=== PATIENT | male | born 1980 | race Caucasian/White ===

== ENCOUNTER 2024-02-12 12:39 | Emergency (ER) | payer OTHER, SELFPAY ==
[2024-02-12] VITALS (9 sets, daily range): BP systolic 134–163; BP diastolic 78–111; BMI 28.5
[2024-02-12 13:11] LABS: % Basophils 1.3 % (0-2); % Eosinophils 3.4 % (0-6); % Immature Granulocytes 0.1 % (0-0.5); % Lymphocytes 26.4 % (20.5-51.1); % Monocytes 9.3 % (1.7-9.3); % Neutrophils 59.5 % (42.2-75.2); Absolute Basophils 0.1 10^3/uL (0-0.2); Absolute Eosinophils 0.2 10^3/uL (0-0.7); Absolute Lymphocytes 1.9 10^3/uL (1.2-3.4); Absolute Monocytes 0.7 10^3/uL (0.1-0.6); Absolute Neutrophils 4.2 10^3/uL (1.4-6.5); Hematocrit 48.7 % (39.0-52.0); Hemoglobin 17.7 g/dL (13.0-18.0); Mean Corp Hgb Conc. 36.3 g/dL (33.0-37.0); Mean Corpuscular Hgb 31.1 pg (27.0-31.0); Mean Corpuscular Volume 85.6 fL (80.0-94.0); Mean Platelet Volume 9.7 fL (7.4-10.4); Nucleated Red Blood Cells % 0 % (-); Platelet Count 197 10^3/uL (130-400); Red Blood Cell Count 5.69 10^6/uL (4.70-6.10); Red Cell Dist. Width 12.8 % (11.5-14.5)
[2024-02-12 13:20] LABS: INR 0.93; PT 12.5 Sec (11.4-14.6)
[2024-02-12 13:29] LABS: ALT (SGPT) 42 U/L (0-50); AST (SGOT) 36 U/L (17-59); Albumin 4.9 g/dl (3.5-5.0); Alkaline Phosphatase 72 U/L (38-126); Blood Urea Nitrogen 19 mg/dl (9-20); Calcium 9.9 mg/dl (8.4-10.2); Carbon Dioxide 27 mmol/L (22-30); Chloride 102 mmol/L (98-107); Glucose 180 mg/dl (70-99); Potassium 4.7 mmol/L (3.5-5.1); Sodium 142 mmol/L (135-145); Total Bilirubin 0.8 mg/dl (0.2-1.3); Total Protein 7.5 g/dl (6.3-8.2); eGFR > 60.00
--- NOTE | 2024-02-12 13:29 | ED.GENMED ---
History of Present Illness
<Palak Whitten PA-C - Last Filed: 02/12/24 18:13>
General
Chief Complaint: Chest Pain
Source: patient
Exam Limitations: none
Time Seen by Provider: 02/12/24 13:19
Nursing documentation reviewed up to this point in time: agreed with
History of Present Illness
History of Present Illness:
Patient is a 43-year-old male presenting to the emergency department for evaluation of chest discomfort. Patient states he initially noticed pain Yash afternoon and describes it as a sharp, stabbing pain in his left chest with no radiation to back
or jaw. Patient states pain is somewhat constant and dull although with very severe intermittent episodes worse with both movement and breathing. Patient denies any known inciting event or trauma. Patient states pain does seem worse when lying
flat. He does endorse feeling short of breath, as well. No associated fever, chills, recent virus, cough.
Patient denies any personal history of blood clots or clotting disorders. He does however state that his grandfather of a blood clot. No recent travel or recent surgeries.
Patient does take testosterone injections twice weekly.
Patient denies any known history of coronary artery disease. He did have a stress test with a cloth laminating supervisor few years ago for general evaluation which was normal.
Review of Systems
<Palak Whitten PA-C - Last Filed: 02/12/24 18:13>
Review of Systems
Allergies reviewed?: Yes
All Other Systems: ROS reviewed and negative except as documented in HPI and ROS
Phy Exam
<Palak Whitten PA-C - Last Filed: 02/12/24 18:13>
Physical Exam
Physical Exam:
Vitals: Hypertensive, otherwise vital signs stable. Afebrile
General: Patient is well appearing, no acute distress. Nontoxic appearing
Skin: Warm and dry, no rashes or lesions
Head: Normocephalic, atraumatic
Eyes: Sclera nonicteric. EOMs intact. No nystagmus.
Throat: Protecting airway
Neck: Normal ROM, no cervical spine tenderness, no meningismus. No JVD. Trachea midline
Cardiac: Regular rate and rhythm, no murmurs.
Pulm: In no apparent respiratory distress. Oxygenating well at 98% on room air. Normal respiratory effort, no wheezes, rales, rhonchi heard on exam.
Abdomen: Nondistended.
Extremities: No evidence of cyanosis or edema. Great distal pulses. Negative Homans' sign bilaterally
Neuro: Grossly intact.
Psychiatric: Normal affect.
Scores
<Palak Whitten PA-C - Last Filed: 02/12/24 18:13>
Heart Score for Chest Pain Patients
STEMI patient?: No
History: Slightly or Non-Suspicious
ECG: Normal
Age: </= 45 years
Risk Factors: 1 or 2 Risk Factors
Troponin: </= Normal Limit
Heart Score for Chest Pain Patients: 1
Heart Score Risk: 2.5% MACE over next 6 weeks
Course
<Palak Whitten PA-C - Last Filed: 02/12/24 18:13>
Orders/Labs/Results
Orders:
Orders
02/12/24 12:40
Electrocardiogram (*1) Urgent
Reason for Study: Chest Pain
EKG- Treatment ONCE
02/12/24 12:54
Complete Blood Count/With Diff Urgent
Comprehensive Metabolic Panel Urgent
Prothrombin Time Urgent
Troponin I Urgent
02/12/24 13:54
0.9% Sodium Chloride 1000 ml [Nss] 1,000 ml IV BOLUS
Ketorolac [Toradol] 15 mg IV NOW STA
02/12/24 13:55
CT Chest Pe Study Urgent
Comment:
Reason For Exam: left sided chest pain, shortness of breath
Abnormal Lab Results
02/12/24
12:54
MCH 31.1 H pg
(27.0-31.0)
Absolute Monos (auto) 0.7 H 10^3/uL
(0.1-0.6)
Glucose 180 H mg/dl
(70-99)
02/12/24 12:54
02/12/24 12:54
Vital Signs
Blood pressure: 134/82
Initial and Last Documented VS:
Initial Vital Signs
Temp Pulse Resp BP Pulse Ox
98.1 F 101 19 145/111 98
02/12/24 12:44 02/12/24 12:44 02/12/24 12:44 02/12/24 12:44 02/12/24 12:44
Last Documented Vital Signs
Temp Pulse Resp BP Pulse Ox
98.5 F 87 20 152/78 98
02/12/24 14:07 02/12/24 16:30 02/12/24 15:17 02/12/24 16:00 02/12/24 16:30
<Alyssa Zazueta MD - Last Filed: 02/12/24 14:27>
Orders/Labs/Results
Orders:
Orders
02/12/24 12:40
Electrocardiogram (*1) Urgent
Reason for Study: Chest Pain
EKG- Treatment ONCE
02/12/24 12:54
Complete Blood Count/With Diff Urgent
Comprehensive Metabolic Panel Urgent
Prothrombin Time Urgent
Troponin I Urgent
02/12/24 13:54
0.9% Sodium Chloride 1000 ml [Nss] 1,000 ml IV BOLUS
Ketorolac [Toradol] 15 mg IV NOW STA
02/12/24 13:55
CT Chest Pe Study Urgent
Comment:
Reason For Exam: left sided chest pain, shortness of breath
Abnormal Lab Results
02/12/24
12:54
MCH 31.1 H pg
(27.0-31.0)
Absolute Monos (auto) 0.7 H 10^3/uL
(0.1-0.6)
Glucose 180 H mg/dl
(70-99)
02/12/24 12:54
02/12/24 12:54
Vital Signs
Initial and Last Documented VS:
Initial Vital Signs
Temp Pulse Resp BP Pulse Ox
98.1 F 101 19 145/111 98
02/12/24 12:44 02/12/24 12:44 02/12/24 12:44 02/12/24 12:44 02/12/24 12:44
Last Documented Vital Signs
Temp Pulse Resp BP Pulse Ox
98.5 F 87 20 152/78 98
02/12/24 14:07 02/12/24 16:30 02/12/24 15:17 02/12/24 16:00 02/12/24 16:30
<Palak Whittne PA-C - Last Filed: 02/12/24 18:13>
MDM/Problems Addressed
Differential Diagnosis Includes:
Not limited to: Pleurisy, costochondritis, muscular strain, pneumothorax, pneumonia, pulmonary embolism, pericarditis, myocarditis, pericardial effusion
MDM/Problems Addressed:
43-year-old male presenting with 3 days of pleuritic chest pain, also worse with movement. Pain does appear worse with movement including leaning forward. No associated fever, chills, cough, or trauma. No history of CAD. Patient hypertensive and
tachycardic on arrival to ED although vital signs normalized by my evaluation. EKG obtained in triage which shows sinus tachycardia. Without any acute ischemic changes. Labs also initiated in triage without any clinically significant
abnormalities. Initial troponin was normal�given symptoms have been constant for the past 3 days�this is not enough to rule out acute NM. Physical exam as above. Patient is very well-appearing, in no apparent respiratory distress. He is very
conversational, nontoxic. Chest wall nontender to palpation. Heart regular rate and rhythm. Lungs clear bilaterally. No clinical evidence of DVT on exam. Patient is perfusing well. Differential diagnosis broad including pericarditis,
myocarditis, muscle strain, pleurisy, or PE. Given patient's family history and hormone replacement injections�will obtain CTA chest to rule out blood clot. Patient very well-appearing and do anticipate discharge. Will give Toradol, IV fluids.
Into reassess patient. Patient does report some improvement with Toradol although pain is still present. His vital signs remained stable in no apparent respiratory stress oxygenating well 98% on room air. CTA chest pending.
CTA chest report reviewed. No evidence of pulmonary embolism or other acute intrathoracic pathology. Patient is very well-appearing sitting up in the chair laughing. He remains in no apparent respiratory distress with oxygen saturation 98% on
room air. He has been hemodynamically stable throughout the duration of his stay in emergency department. Suspect likely pleurisy secondary to recent URI versus muscular strain. Will advise close primary care follow-up and NSAIDs at home. Return
precautions discussed at length. Patient stable for discharge. Patient seen with attending physician.
Chronic conditions affecting care:
Diabetes, hyperlipidemia
Acute Exacerbation and/or Progression of Chronic Illness:
N/A
<Plaak Whitten PA-C - Last Filed: 02/12/24 18:13>
*Radiology
Radiology exam reviewed: preliminary read by ED provider and radiology read reviewed
*Pulse Oximetry
Patient hypoxic: no
*EKG
Interpreted by ED Provider?: Yes
EKG Intrepretation Date: 02/12/24
Interpretation: normal
Comparison EKG: no changes
Heart Rate: 97
Rate: normal
Rhythm: sinus
[place]: normal axis
Interval: normal interval
QRS Pattern: normal QRS
Ischemia: no ischemia
*Clinic Receptionist Interpretation
Rate: normal
Interpretation: normal
Heart Rate: 94
Rhythm: sinus
*Critical Care Note
Total Time (30-74mins, 75-104mins- exclusive of procedures): Not Applicable
ED Attending Note
<Palak Whitten PA-C - Last Filed: 02/12/24 18:13>
-
Portions of this chart may have been created with voice recognition software.� Occasional wrong word or��sound alike� substitutions may have occurred due to the inherent limitations of voice recognition software.
<Alyssa Zazueta MD - Last Filed: 02/12/24 14:27>
ED Attending Note
Patient seen and examined by attending physician: Yes
I performed the substantive portion of visit, reviewed & personally made and approve the management plan that is documented in note by myself or MILEY.: Yes
ED Attending Note:
43-year-old man with history of diabetes, hyperlipidemia presenting to the emergency department with chest pain for the past 4 days. Pleuritic in nature. Does worsen with any movement. Does get better with leaning forward. It does worse with
exertion but he states that it could be secondary to the movement. No history of blood clots. Family history of blood clots. No leg swelling hemoptysis malignancy or recent immobilization. Did have a cough and URI a few weeks ago. Has seen
cardiology before with a negative stress test. Vitals are notable for heart rate of 101 initially but during my evaluation was in the 80s. Exam does show a well-appearing man who is resting comfortably. Lungs are clear to auscultation bilaterally
and heart is regular rate and rhythm. No chest wall tenderness. No obvious leg swelling on exam. Differential is broad but consists of pericarditis versus PE. ACS though less likely. Will check blood work EKG and CT scan PE protocol given
family history. Dispo pending results but anticipate discharge
Discharge Plan
Departure
Patient Disposition: Home (Routine Discharge)
Date of Disposition: 02/12/24
Time of Disposition: 18:00
Patient with high blood pressure during this ER visit?: Yes
Condition: Good
Covid-19: Not Applicable
Discharge Problem:
Chest pain
Instructions: Chest pain, BLOOD PRESSURE, Pleurisy
Prescriptions:
No Action
No Current Medications
0
Referrals:
Faisal Gracia DO [Family Provider] - Follow up in 5-7 days
Activity Restrictions/Additional Instructions:
RETURN TO THE EMERGENCY DEPARTMENT WITH ANY WORSENING CHEST PAIN, SHORTNESS OF BREATH/DIFFICULTY BREATHING, COUGHING UP BLOOD, FEVERS, WORSENING IN CURRENT SYMPTOMS, OR ANY OTHER CONCERNS
-As discussed�it is possible that your symptoms are related to either inflammation of the lung lining (pleurisy) or muscle strain . You can take Motrin and/or Tylenol at home as needed. Take it easy over the next few days. Avoid straining the
area.
-You should follow-up with your primary care provider within the week to ensure that symptoms are improving.
Monitor your symptoms closely and return to the emergency department with any acute worsening/new symptoms
Interventions
Interventions:
*Risk Screen - Suicide Last Done: 02/12/24 14:07
*General Assessment Last Done: 02/12/24 14:07
*Neglect/Abuse Screening Last Done: 02/12/24 14:07
ED- Fall Risk Assessment Last Done: 02/12/24 14:07
*ED COVID-19 Vaccine History Last Done: 02/12/24 14:07
ED- Cardiac Assessment Last Done: 02/12/24 14:07
Discharge Date and Time
Print Language: CENTRAL AFRICAN
[2024-02-12 13:38] LABS: Troponin I < 0.012 ng/ml
[2024-02-12] MEDS: TORADOL 15 MG IV (15:11)
[2024-02-12] MEDS: NSS 1000 IV (15:12)
== END 2024-02-12 18:16 | disposition home or self-care (01) ==
LOC: EMR 12:39
PROVIDERS: EMERGENCY PHYSICIAN Student in an Organized Health Care Education/Training Program; FAMILY PHYSICIAN Family Medicine
DX: R07.89 Other chest pain (principal); R06.02 Shortness of breath; R03.0 Elevated blood-pressure reading, without diagnosis of hypertension; E11.9 Type 2 diabetes mellitus without complications; E78.5 Hyperlipidemia, unspecified; Z79.84 Long term (current) use of oral hypoglycemic drugs; Z79.890 Hormone replacement therapy; Z91.030 Bee allergy status
CPT/HCPCS: 99285; 96361; 96374; 71275; 80053; 84484; 85025; 85610; 93005; Q9967